=== PATIENT | male | born 1935 | race Caucasian/White ===

== ENCOUNTER 2017-02-03 12:42 | Emergency (ER) | payer OTHER ==
[2017-02-03 12:56] VITALS: RESP 20
[2017-02-03] MEDS ORDERED: FLEET ENEMA PR PRN (13:32)
[2017-02-03 13:53] LABS: BASOPHILS % (AUTO) 1 % (0-3); EOSINOPHILS % (AUTO) 2 % (0-9); HEMATOCRIT 37 % (39-53); MEAN CORPUSCULAR HGB CONC 35.4 gm/dl (32.0-36.0); MEAN CORPUSCULAR VOLUME 85 fL (80-100); MONOCYTES % (AUTO) 14.1 % (0-12); NEUTROPHILS % (AUTO) 63.1 % (37-80)
[2017-02-03 14:19] LABS: ALBUMIN 3.5 gm/dl (3.4-5.0); CALCIUM 8.7 mg/dl (8.5-10.1); THYROID STIMULATING HORMONE 9.439 uIU/ml (0.358-3.740)
[2017-02-03 14:22] LABS: APPEARANCE,URINE Clear; BILIRUBIN,URINE NEGATIVE (NEGATIVE); COLOR,URINE Yellow; GLUCOSE, URINE (UA) 2+ (NEGATIVE); KETONES,URINE 2+ (NEGATIVE); LEUKOCYTE ESTERASE ,URINE NEGATIVE (NEGATIVE); NITRATE,URINE NEGATIVE (NEGATIVE); OCCULT BLOOD,URINE NEGATIVE (NEG-TRACE); PH,URINE 5.5; UROBILINOGEN,URINE 0.2 (0.2-1.0 EU)
[2017-02-03 14:28] LABS: RBC,URINE NEG (0-3AV/HPF); WBC,URINE 0-1 (0-5AV/HPF)
[2017-02-03 14:52] VITALS: BP 177/81; PULSE 78; TEMP 98.1; O2SAT 97
== END 2017-02-03 15:18 | disposition home or self-care (01) | DRG 596 ==
LOC: ED 12:42
DX: B02.9 Zoster without complications (principal); E11.9 Type 2 diabetes mellitus without complications; K59.00 Constipation, unspecified; R94.6 Abnormal results of thyroid function studies; R42 Dizziness and giddiness; Z79.4 Long term (current) use of insulin
CPT/HCPCS: 74020; 80053; 81001; 84443; 85025; 93005; 99283